=== PATIENT | female | born 1985 | race Caucasian/White ===

== ENCOUNTER 2021-11-28 08:14 | Outpatient (RCR) | payer OTHER, SELFPAY ==
--- NOTE | ~2021-11-28 | US_ITS ---
EXAMINATION: US OB <=14 wk fetus w TV DATE: 11/27/2021 10:52 INDICATION: Spotting during first trimester TECHNIQUE: Real-time pelvic transabdominal and transvaginal ultrasound was performed. COMPARISON: None. FINDINGS: The uterus measures 9.2 x 6.8 x 6.0 cm. There is a 3.7 cm intramural fibroid of the anterio r uterine body. There is an intrauterine gestational sac. A yolk sac is identified. No cardiac motion is detected. The crown rump length measures 3 mm , which correlates with an estimated g estational age of 6 weeks and 0 day(s) (+/-) 3 day(s). The right ovary measures 2.0 x 2.1 x 1.5 cm. The left ovary measures 1.9 x 1.5 x 1.8 cm. There is nor mal vascular flow in the ovaries. There is no free fluid in the pelvis. IMPRESSION: 1. Intrauterine with an estimated gestational age of 6 weeks and 0 day(s) (+/-) 3 day(s) an d an estimated delivery date of 07/23/2022. 2. No detectable heart tones which could be due to early . If the patient is clinicall y stable, recommend followup with serial beta-hCG and ultrasound. Reviewed, dictated and finalized at location A. IMPRESSION: 1. Intrauterine with an estimated gestational age of 6 weeks and 0 da y(s) (+/-) 3 day(s) and an estimated delivery date of 07/23/2022. 2. No detectable heart tones which could be due to early . If th e patient is clinically stable, recommend followup with serial beta-hCG and ult rasound.
[2021-11-28] MEDS: RHO(D) IMMUNE GLOBULIN 300 MCG/2 ML SYRINGE IM (19:17)
== END 2022-02-25 23:59 | disposition home or self-care (01) ==
LOC: ANHIMG 08:14
PROVIDERS: Visit Provider Obstetrics & Gynecology
DX: Z29.13 Encounter for prophylactic Rho(D) immune globulin (principal); O36.0190 Maternal care for anti-D [Rh] antibodies, unspecified trimester, not applicable or unspecified; Z3A.00 Weeks of gestation of pregnancy not specified
CPT/HCPCS: 36415; 76801; 76817; 85461; 86850; 86900; 86901; 90384; 96372; J2790

== ENCOUNTER 2021-12-03 08:58 | Outpatient (CLI) | payer OTHER, SELFPAY ==
--- NOTE | ~2021-12-03 | US_ITS ---
EXAMINATION: US OB <=14 wk fetus w TV DATE: 12/03/2021 09:49 INDICATION: Vaginal spotting. Evaluate viability. TECHNIQUE: Real-time transabdominal and transvaginal obstetric ultrasound. FINDINGS: Ultrasound dated 11/27/2021 There is an intrauterine gestational sac, with pole identified. The crown rump length measures 0.32 cm, which correlates with a estimated gestational age of 6 weeks 0 days. No heart motions detected. There is uterine fibroid measuring 3.8 cm maximum dimension. Yolk sac is present in the ge stational sac. Ovaries are within normal limits without significant ovarian or adnexal mass. IMPRESSION: 1. Intrauterine gestational sac containing a pole corresponding to 6 week 0 day gestation witho ut progression in size compared with prior examination. No heart motions, most likely dem ise. Early intrauterine is less favored given the lack of interval enlargement of [place] e. Recommend follow-up with serial quantitative beta-hCG levels and ultrasound as clinically indicate d. Reviewed, dictated and finalized at location A. IMPRESSION: 1. Intrauterine gestational sac containing a pole corresponding to 6 week 0 day gestation without progression in size compared with prior examination. N o heart motions, most likely demise. Early intrauterine i s less favored given the lack of interval enlargement of pole. Recommend follow-up with serial quantitative beta-hCG levels and ultrasound as clinically indicated.
== END 2021-12-03 08:59 | disposition home or self-care (01) ==
PROVIDERS: Visit Provider Obstetrics & Gynecology
DX: Z34.91 Encounter for supervision of normal pregnancy, unspecified, first trimester (principal); Z3A.01 Less than 8 weeks gestation of pregnancy
CPT/HCPCS: 76801; 76817